=== PATIENT | female | born 1975 ===

== ENCOUNTER 2017-08-13 06:22 | Day surgery (SDC) | payer BC ==
[~2017-08-13] VITALS: Ht 170.2 cm; Wt 88.0 kg
[2017-08-13] MEDS ORDERED: Depo-Prove150 MG/11 (07:02)
[2017-08-13] MEDS ORDERED: CETI5 PO (07:02)
== END 2017-08-13 14:15 | disposition home or self-care (01) ==
LOC: ORSCSDS 06:22
PROVIDERS: Otolaryngology
PROC: 0NB50ZZ Excision of Right Temporal Bone, Open Approach (ICD-10-PCS; principal; 2017-08-13 07:30)
DX: H71.01 Cholesteatoma of attic, right ear (principal)
CPT/HCPCS: J1100; J1170; J2250; J2405; J3010; J7120

== ENCOUNTER 2025-03-21 08:18 | Day surgery (SDC) | payer OTHER ==
[~2025-03-21] VITALS: Ht 170.2 cm; Wt 75.5 kg
[~2025-03-21 08:18] MED LIST: CETI5 PO; Depo-Prove150 MG/11
[2025-03-21] MEDS ORDERED: PRAV20 (08:52)
[2025-03-21 10:46] VITALS: BP 137/89
== END 2025-03-21 10:44 | disposition home or self-care (01) ==
LOC: ORSCSDS 08:18
PROVIDERS: Surgery
PROC: 0DJD8ZZ Inspection of Lower Intestinal Tract, Via Natural or Artificial Opening Endoscopic (ICD-10-PCS; principal; 2025-03-21 09:45)
DX: Z12.11 Encounter for screening for malignant neoplasm of colon (principal); Z83.719 Family history of colon polyps, unspecified; J45.909 Unspecified asthma, uncomplicated; E78.5 Hyperlipidemia, unspecified; Z79.899 Other long term (current) drug therapy; Z87.891 Personal history of nicotine dependence
CPT/HCPCS: J2704; J7120